=== PATIENT | male | born 1985 | race Caucasian/White ===

== ENCOUNTER 2021-12-13 09:50 | Inpatient (IN) | payer OTHER ==
[~2021-12-13] VITALS: Ht 172.7 cm; Wt 72.7 kg
[2021-12-13 12:02] LABS: COVID AG,FIA SOURCE NASOPHARYNGEAL
[2021-12-13 12:26] VITALS: BP 137/84
[2021-12-13] MEDS ORDERED: SODIUM CHLORIDE 0.9% 1,000 ML IV ONE (15:00)
[2021-12-13] MEDS ORDERED: LOPERAMIDE HCL 2 MG CAPSULE PO PRN (15:00)
[2021-12-13] MEDS ORDERED: METOCLOPRAMIDE HCL 5 MG/ML 2 ML VIAL IVP PRN (15:00)
[2021-12-13] MEDS ORDERED: DICYCLOMINE HCL 10 MG CAPSULE PO PRN (15:00)
[2021-12-13 15:05] LABS: BASOPHILS % (AUTO) 0.3 % (0.0-2.0); EOSINOPHILS % (AUTO) 0.9 % (1.0-6.0); HEMATOCRIT 38.6 % (41-53); HEMOGLOBIN 13.1 g/dL (13.5-17.5); LYMPHOCYTES # (AUTO) 1.4 K/uL (1.0-4.8); LYMPHOCYTES % (AUTO) 25.2 % (22.0-44.0); MEAN CORPUSCULAR HEMOGLOBIN 29.7 pg (26.0-34.0); MEAN CORPUSCULAR HGB CONC 33.9 G/dL (31.0-37.0); MEAN CORPUSCULAR VOLUME 88 fL (80-100); MONOCYTES # (AUTO) 0.4 K/uL (0.1-1.0); MONOCYTES % (AUTO) 6.8 % (2.0-9.0); NEUTROPHILS # (AUTO) 3.7 K/uL (1.8-7.7); NEUTROPHILS % (AUTO) 66.8 % (40.0-70.0); PLATELET COUNT (AUTO) 192 K/uL (150-450); RED BLOOD CELL COUNT(AUTO) 4.41 MIL/uL (4.50-5.90); RED CELL DISTRIBUTION WIDTH 13.6 % (11.5-14.5)
[2021-12-13 15:14] LABS: ANION GAP 4 mmol/L (8-16); CALCIUM, TOTAL 9.1 mg/dL (8.8-10.5); CARBON DIOXIDE 30 mmol/L (22-29); CHLORIDE 104 mmol/L (98-107); CREATININE 0.68 mg/dL (0.60-1.30); GLOMERULAR FILTR. RATE CALC > 60 mL/min (>60); GLUCOSE,RANDOM 117 mg/dL (70-110); POTASSIUM 3.8 mmol/L (3.5-5.1); SODIUM SERUM 138 mmol/L (136-145); UREA NITROGEN, BLOOD 13 mg/dL (7-18)
[2021-12-13 15:20] LABS: ALANINE AMINOTRANSFERASE 30 U/L (12-78); ALBUMIN 3.5 g/dL (3.4-5.0); ALKALINE PHOSPHATASE 61 U/L (46-116); ASPARTATE AMINOTRANSFERASE 15 U/L (15-37); BILIRUBIN,TOTAL 0.4 mg/dL (0.1-1.0); TOTAL PROTEIN, SERUM 6.7 g/dL (6.4-8.2)
[2021-12-13 16:18] VITALS: BP 112/64
[2021-12-13] MEDS: ACETAMINOPHEN/CODEINE 300-15 MG TABLET PO PRN (16:27)
[2021-12-13] MEDS: LORazepam 2 MG/ML VIAL IVP PRN (16:28)
[2021-12-13 20:13] VITALS: BP 101/58
[2021-12-13] MEDS ORDERED: TEMAZEPAM 15 MG CAPSULE PO SCH (21:00)
[2021-12-14] MEDS: LORazepam 2 MG/ML VIAL IVP PRN ×3 (00:29→16:41)
[2021-12-14] MEDS: ACETAMINOPHEN/CODEINE 300-15 MG TABLET PO PRN ×3 (00:29→16:41)
[2021-12-14 09:03] VITALS: BP 108/61
[2021-12-14] MEDS ORDERED: DENTURE ADHESIVE 68 GM CREAM DT PRN (11:30)
[2021-12-14] MEDS: BUPRENORPHINE HCL/NALOXONE HCL 8-2 MG SUBLINGUAL TABLET SL SCH (13:25)
[2021-12-14] MEDS: HydrOXYzine PAMOATE 25 MG CAPSULE PO SCH ×2 (13:25→20:31)
[2021-12-14 15:12] LABS: AMPHET/METH SCREEN,URINE NEGATIVE (NEGATIVE); BARBITURATE SCREEN, URINE NEGATIVE (NEGATIVE); BENZODIAZEPINES SCREEN,URINE NEGATIVE (NEGATIVE); CANNABINOID SCREEN,URINE NEGATIVE (NEGATIVE); COCAINE SCREEN,URINE NEGATIVE (NEGATIVE); METHADONE SCREEN, URINE NEGATIVE (NEGATIVE); OPIATE SCREEN,URINE POSITIVE (NEGATIVE)
[2021-12-14 15:26] LABS: PHENCYCLIDINE SCREEN,URINE NEGATIVE (NEGATIVE)
[2021-12-14 16:22] VITALS: BP 122/69
[2021-12-14 20:00] VITALS: BP 120/56
[2021-12-14] MEDS: TraZODone HCL 50 MG TABLET PO SCH (20:31)
[2021-12-14] MEDS ORDERED: TEMAZEPAM 15 MG CAPSULE PO ONE (21:15)
[2021-12-15 05:30] VITALS: BP 109/61
[2021-12-15] MEDS: LORazepam 2 MG/ML VIAL IVP PRN (06:17)
[2021-12-15] MEDS: ACETAMINOPHEN/CODEINE 300-15 MG TABLET PO PRN (06:18)
[2021-12-15] MEDS: MULTIVITAMINS WITH MINERALS, THERAPEUTIC TABLET PO SCH (08:35)
[2021-12-15] MEDS: HydrOXYzine PAMOATE 25 MG CAPSULE PO SCH ×2 (08:35→19:54)
[2021-12-15] MEDS: BUPRENORPHINE HCL/NALOXONE HCL 8-2 MG SUBLINGUAL TABLET SL SCH (08:35)
[2021-12-15 08:37] VITALS: BP 107/50
[2021-12-15 12:00] VITALS: BP 108/78
[2021-12-15] MEDS ORDERED: IBUPROFEN 600 MG TABLET PO PRN (13:15)
[2021-12-15] MEDS ORDERED: MAG HYDROX/AL HYDROX/SIMETH ES 30 ML SUSPENSION UDCUP PO PRN (13:15)
[2021-12-15] MEDS: DIAZEPAM 5 MG TABLET PO PRN ×2 (13:38→19:54)
[2021-12-15] MEDS ORDERED: DICYCLOMINE HCL 10 MG CAPSULE PO PRN (15:00)
[2021-12-15] MEDS ORDERED: METOCLOPRAMIDE HCL 5 MG/ML 2 ML VIAL IVP PRN (15:00)
[2021-12-15 16:06] VITALS: BP 124/61
[2021-12-15 16:31] VITALS: BP 124/61
[2021-12-15] MEDS: CloNIDine HCL 0.1 MG TABLET PO PRN (18:23)
[2021-12-15] MEDS: TraZODone HCL 50 MG TABLET PO SCH (19:54)
[2021-12-15 19:55] VITALS: BP 98/55
[2021-12-16] MEDS ORDERED: DIAZEPAM 5 MG TABLET PO PRN (07:00)
[2021-12-16 07:41] VITALS: BP 98/61
[2021-12-16] MEDS: MULTIVITAMINS WITH MINERALS, THERAPEUTIC TABLET PO SCH (08:33)
[2021-12-16] MEDS: BUPRENORPHINE HCL/NALOXONE HCL 2-0.5 MG SUBLINGUAL TABLET SL SCH (08:33)
[2021-12-16] MEDS: DIAZEPAM 5 MG TABLET PO SCH ×4 (08:33→20:22)
[2021-12-16] MEDS: HydrOXYzine PAMOATE 50 MG CAPSULE PO PRN ×2 (08:33→08:34)
[2021-12-16] MEDS: HydrOXYzine PAMOATE 25 MG CAPSULE PO SCH ×2 (09:15→20:22)
[2021-12-16 12:31] VITALS: BP 98/57
[2021-12-16 13:50] VITALS: BP 110/68
[2021-12-16] MEDS: CloNIDine HCL 0.1 MG TABLET PO PRN (15:31)
[2021-12-16 16:05] VITALS: BP 110/68
[2021-12-16] MEDS: TraZODone HCL 50 MG TABLET PO SCH (20:22)
[2021-12-16 20:25] VITALS: BP 110/68
[2021-12-16] MEDS: HYPROMELLOSE 0.5% 15 ML OPHTHALMIC SOLUTION OU PRN (21:22)
[2021-12-17] MEDS: MULTIVITAMINS WITH MINERALS, THERAPEUTIC TABLET PO SCH (08:22)
[2021-12-17 08:23] VITALS: BP 105/59
[2021-12-17] MEDS: DIAZEPAM 5 MG TABLET PO SCH ×4 (08:23→20:15)
[2021-12-17] MEDS: HydrOXYzine PAMOATE 25 MG CAPSULE PO SCH ×2 (08:23→20:14)
[2021-12-17] MEDS: BUPRENORPHINE HCL/NALOXONE HCL 2-0.5 MG SUBLINGUAL TABLET SL SCH (08:24)
[2021-12-17] MEDS: HYPROMELLOSE 0.5% 15 ML OPHTHALMIC SOLUTION OU PRN (08:40)
[2021-12-17] MEDS: SERTRALINE HCL 50 MG TABLET PO SCH ×2 (13:48→20:14)
[2021-12-17 16:09] VITALS: BP 95/54
[2021-12-17 20:05] VITALS: BP 113/66
[2021-12-17] MEDS: TraZODone HCL 50 MG TABLET PO SCH (20:15)
[2021-12-18 06:00] VITALS: BP 102/56
[2021-12-18] MEDS: DIAZEPAM 5 MG TABLET PO PRN ×3 (06:36→21:18)
[2021-12-18 07:29] VITALS: BP 110/58
[2021-12-18] MEDS: MULTIVITAMINS WITH MINERALS, THERAPEUTIC TABLET PO SCH (08:11)
[2021-12-18] MEDS: DIAZEPAM 5 MG TABLET PO SCH ×4 (08:27→20:28)
[2021-12-18] MEDS: HydrOXYzine PAMOATE 25 MG CAPSULE PO SCH ×2 (08:27→20:28)
[2021-12-18] MEDS: SERTRALINE HCL 50 MG TABLET PO SCH ×2 (08:28→20:27)
[2021-12-18] MEDS: BUPRENORPHINE HCL/NALOXONE HCL 2-0.5 MG SUBLINGUAL TABLET SL SCH (08:29)
[2021-12-18] MEDS: CloNIDine HCL 0.1 MG TABLET PO PRN ×2 (08:39→12:35)
[2021-12-18] MEDS ORDERED: DIAZEPAM 5 MG TABLET PO PRN (12:15)
[2021-12-18] MEDS ORDERED: SIMETHICONE 80 MG CHEWABLE TABLET CHEW PRN (12:45)
[2021-12-18] MEDS ORDERED: ONDANSETRON HCL 4 MG/2 ML VIAL IVP PRN (12:45)
[2021-12-18 15:20] VITALS: BP 98/56
[2021-12-18] MEDS: FAMOTIDINE 20 MG TABLET PO SCH ×2 (17:12→20:28)
[2021-12-18 19:37] VITALS: BP 93/53
[2021-12-18] MEDS: TraZODone HCL 50 MG TABLET PO SCH (20:29)
[2021-12-18] MEDS: ACETAMINOPHEN/CODEINE 300-15 MG TABLET PO PRN (20:34)
[2021-12-18] MEDS: HYPROMELLOSE 0.5% 15 ML OPHTHALMIC SOLUTION OU PRN (21:23)
[2021-12-19 05:17] VITALS: BP 102/52
[2021-12-19] MEDS: DIAZEPAM 5 MG TABLET PO PRN (06:26)
[2021-12-19] MEDS: ACETAMINOPHEN/CODEINE 300-15 MG TABLET PO PRN (06:28)
[2021-12-19] MEDS ORDERED: DIAZEPAM 5 MG TABLET PO PRN (07:00)
[2021-12-19] MEDS: SERTRALINE HCL 50 MG TABLET PO SCH ×2 (09:18→20:22)
[2021-12-19] MEDS: HydrOXYzine PAMOATE 25 MG CAPSULE PO SCH ×2 (09:18→20:22)
[2021-12-19] MEDS: BUPRENORPHINE HCL/NALOXONE HCL 2-0.5 MG SUBLINGUAL TABLET SL SCH (09:19)
[2021-12-19] MEDS: MULTIVITAMINS WITH MINERALS, THERAPEUTIC TABLET PO SCH (09:19)
[2021-12-19] MEDS: FAMOTIDINE 20 MG TABLET PO SCH ×2 (09:19→20:21)
[2021-12-19] MEDS ORDERED: BUPRENORPHINE HCL/NALOXONE HCL 2-0.5 MG SUBLINGUAL TABLET SL ONE (11:45)
[2021-12-19 15:33] VITALS: BP 119/76
[2021-12-19] MEDS: CloNIDine HCL 0.1 MG TABLET PO PRN (15:51)
[2021-12-19 16:28] VITALS: BP 105/67
[2021-12-19 19:40] VITALS: BP 108/67
[2021-12-19] MEDS: TraZODone HCL 50 MG TABLET PO SCH (20:21)
[2021-12-20 04:20] VITALS: BP 95/83
[2021-12-20 06:13] LABS: AMPHET/METH SCREEN,URINE NEGATIVE (NEGATIVE); BARBITURATE SCREEN, URINE NEGATIVE (NEGATIVE); BENZODIAZEPINES SCREEN,URINE POSITIVE (NEGATIVE); CANNABINOID SCREEN,URINE NEGATIVE (NEGATIVE); COCAINE SCREEN,URINE NEGATIVE (NEGATIVE); METHADONE SCREEN, URINE NEGATIVE (NEGATIVE); OPIATE SCREEN,URINE POSITIVE (NEGATIVE)
[2021-12-20 06:18] LABS: PHENCYCLIDINE SCREEN,URINE NEGATIVE (NEGATIVE)
[2021-12-20 08:10] VITALS: BP 97/58
[2021-12-20] MEDS: HydrOXYzine PAMOATE 25 MG CAPSULE PO SCH (08:14)
[2021-12-20] MEDS: MULTIVITAMINS WITH MINERALS, THERAPEUTIC TABLET PO SCH (08:15)
[2021-12-20] MEDS: FAMOTIDINE 20 MG TABLET PO SCH (08:15)
[2021-12-20] MEDS: SERTRALINE HCL 50 MG TABLET PO SCH ×2 (08:15→20:47)
[2021-12-20] MEDS ORDERED: BUPRENORPHINE HCL/NALOXONE HCL 8-2 MG SUBLINGUAL TABLET SL SCH (09:00)
[2021-12-20] MEDS ORDERED: HYPR15DR23 OU (11:21)
[2021-12-20] MEDS ORDERED: ACET-3560 PO (11:21)
[2021-12-20] MEDS ORDERED: LOPE2 PO (11:21)
[2021-12-20] MEDS ORDERED: SERT-158 PO (11:21)
[2021-12-20] MEDS ORDERED: IBUP-2070 PO (11:21)
[2021-12-20] MEDS ORDERED: MAG30ORA19 PO (11:25)
[2021-12-20] MEDS ORDERED: SIME80TA82 PO (11:25)
[2021-12-20] MEDS ORDERED: TRAZ-252 PO (15:44)
[2021-12-20] MEDS ORDERED: BUPR1FIL3 SL (15:44)
[2021-12-20] MEDS ORDERED: HYDR-4808 PO (15:44)
[2021-12-20 16:25] VITALS: BP 112/72
[2021-12-20] MEDS ORDERED: ZOLPIDEM TARTRATE 5 MG TABLET PO PRN (16:30)
[2021-12-20 19:24] VITALS: BP 109/50
[2021-12-20 20:00] VITALS: BP 116/57
[2021-12-20] MEDS ORDERED: TraZODone HCL 50 MG TABLET PO ONE (22:45)
[2021-12-21 05:57] VITALS: BP 99/55
[2021-12-21 07:50] VITALS: BP 110/76
[2021-12-21] MEDS: BUPRENORPHINE HCL/NALOXONE HCL 8-2 MG SUBLINGUAL TABLET SL SCH (08:03)
[2021-12-21] MEDS: SERTRALINE HCL 50 MG TABLET PO SCH ×2 (08:04→20:05)
[2021-12-21 09:29] LABS: AMPHET/METH SCREEN,URINE NEGATIVE (NEGATIVE); BARBITURATE SCREEN, URINE NEGATIVE (NEGATIVE); BENZODIAZEPINES SCREEN,URINE POSITIVE (NEGATIVE); CANNABINOID SCREEN,URINE NEGATIVE (NEGATIVE); COCAINE SCREEN,URINE NEGATIVE (NEGATIVE); METHADONE SCREEN, URINE NEGATIVE (NEGATIVE); OPIATE SCREEN,URINE NEGATIVE (NEGATIVE); PHENCYCLIDINE SCREEN,URINE NEGATIVE (NEGATIVE)
[2021-12-21 15:38] VITALS: BP 116/74
[2021-12-21] MEDS ORDERED: HydrOXYzine PAMOATE 50 MG CAPSULE PO ONE (16:00)
[2021-12-21] MEDS ORDERED: DiphenhydrAMINE HCL 50 MG/ML VIAL IM ONE (19:45)
[2021-12-21 20:05] VITALS: BP 119/70
[2021-12-21] MEDS: ZOLPIDEM TARTRATE 10 MG TABLET PO PRN (20:07)
[2021-12-22 08:13] VITALS: BP 92/57
[2021-12-22] MEDS: SERTRALINE HCL 50 MG TABLET PO SCH ×2 (08:22→20:57)
[2021-12-22] MEDS: BUPRENORPHINE HCL/NALOXONE HCL 8-2 MG SUBLINGUAL TABLET SL SCH (08:22)
[2021-12-22] MEDS ORDERED: TraZODone HCL 50 MG TABLET PO ONE (09:15)
[2021-12-22 10:45] LABS: AMPHET/METH SCREEN,URINE NEGATIVE (NEGATIVE); BARBITURATE SCREEN, URINE NEGATIVE (NEGATIVE); BENZODIAZEPINES SCREEN,URINE POSITIVE (NEGATIVE); CANNABINOID SCREEN,URINE NEGATIVE (NEGATIVE); COCAINE SCREEN,URINE NEGATIVE (NEGATIVE); METHADONE SCREEN, URINE NEGATIVE (NEGATIVE); OPIATE SCREEN,URINE NEGATIVE (NEGATIVE)
[2021-12-22 10:46] LABS: PHENCYCLIDINE SCREEN,URINE NEGATIVE (NEGATIVE)
[2021-12-22] MEDS: BuPROPion HCL 75 MG TABLET PO SCH (11:28)
[2021-12-22 16:19] VITALS: BP 95/47
[2021-12-22 16:23] VITALS: BP 102/58
[2021-12-22 20:53] VITALS: BP 99/57
[2021-12-22] MEDS: TraZODone HCL 50 MG TABLET PO SCH (20:58)
[2021-12-22] MEDS: ZOLPIDEM TARTRATE 10 MG TABLET PO PRN (21:40)
[2021-12-22] MEDS: HYPROMELLOSE 0.5% 15 ML OPHTHALMIC SOLUTION OU PRN (21:49)
[2021-12-23] MEDS: SERTRALINE HCL 50 MG TABLET PO SCH ×2 (08:07→20:04)
[2021-12-23] MEDS: BUPRENORPHINE HCL/NALOXONE HCL 8-2 MG SUBLINGUAL TABLET SL SCH (08:07)
[2021-12-23] MEDS: BuPROPion HCL 75 MG TABLET PO SCH (08:08)
[2021-12-23 08:23] VITALS: BP 101/56
[2021-12-23] MEDS: GABAPENTIN 300 MG CAPSULE PO SCH ×2 (10:57→20:03)
[2021-12-23 14:32] LABS: AMPHET/METH SCREEN,URINE NEGATIVE (NEGATIVE); BARBITURATE SCREEN, URINE NEGATIVE (NEGATIVE); BENZODIAZEPINES SCREEN,URINE POSITIVE (NEGATIVE); CANNABINOID SCREEN,URINE NEGATIVE (NEGATIVE); COCAINE SCREEN,URINE NEGATIVE (NEGATIVE); METHADONE SCREEN, URINE NEGATIVE (NEGATIVE); OPIATE SCREEN,URINE NEGATIVE (NEGATIVE)
[2021-12-23 14:35] LABS: PHENCYCLIDINE SCREEN,URINE NEGATIVE (NEGATIVE)
[2021-12-23 16:00] VITALS: BP 106/57
[2021-12-23] MEDS: TraZODone HCL 50 MG TABLET PO SCH (20:03)
[2021-12-23 20:05] VITALS: BP 101/61
[2021-12-23] MEDS: ZOLPIDEM TARTRATE 10 MG TABLET PO PRN (21:18)
[2021-12-24 07:34] VITALS: BP 116/71
[2021-12-24] MEDS: SERTRALINE HCL 50 MG TABLET PO SCH ×2 (08:59→19:58)
[2021-12-24] MEDS: GABAPENTIN 300 MG CAPSULE PO SCH ×2 (08:59→19:58)
[2021-12-24] MEDS: BUPRENORPHINE HCL/NALOXONE HCL 8-2 MG SUBLINGUAL TABLET SL SCH (09:00)
[2021-12-24] MEDS: BuPROPion HCL 75 MG TABLET PO SCH (09:00)
[2021-12-24 09:43] LABS: AMPHET/METH SCREEN,URINE NEGATIVE (NEGATIVE); BARBITURATE SCREEN, URINE NEGATIVE (NEGATIVE); BENZODIAZEPINES SCREEN,URINE POSITIVE (NEGATIVE); CANNABINOID SCREEN,URINE NEGATIVE (NEGATIVE); COCAINE SCREEN,URINE NEGATIVE (NEGATIVE); METHADONE SCREEN, URINE NEGATIVE (NEGATIVE); OPIATE SCREEN,URINE NEGATIVE (NEGATIVE)
[2021-12-24 09:45] LABS: PHENCYCLIDINE SCREEN,URINE NEGATIVE (NEGATIVE)
[2021-12-24 15:59] VITALS: BP 111/62
[2021-12-24] MEDS ORDERED: GABA-1181 PO (17:20)
[2021-12-24] MEDS ORDERED: BUPR-344 PO (17:44)
[2021-12-24] MEDS: TraZODone HCL 50 MG TABLET PO SCH (19:58)
[2021-12-24] MEDS: ZOLPIDEM TARTRATE 10 MG TABLET PO PRN (19:58)
[2021-12-24 20:00] VITALS: BP 115/63
[2021-12-25] MEDS: BUPRENORPHINE HCL/NALOXONE HCL 8-2 MG SUBLINGUAL TABLET SL SCH (06:12)
[2021-12-25] MEDS: SERTRALINE HCL 50 MG TABLET PO SCH (06:12)
[2021-12-25] MEDS: GABAPENTIN 300 MG CAPSULE PO SCH (06:13)
== END 2021-12-25 07:35 | DRG 897 ==
LOC: EMS 09:50 → 6S 11:48
PROVIDERS: ADMIT Hospitalist; ATTEND Hospitalist
DX: F11.23 Opioid dependence with withdrawal (principal); F13.20 Sedative, hypnotic or anxiolytic dependence, uncomplicated; D64.9 Anemia, unspecified; F17.210 Nicotine dependence, cigarettes, uncomplicated; Z20.822 Contact with and (suspected) exposure to COVID-19; F41.1 Generalized anxiety disorder; Z79.899 Other long term (current) drug therapy
CPT/HCPCS: 80053; 80307; 85025; 87081; 99285; G0480; J1200; J2060; J2765; J7030

== ENCOUNTER 2025-01-18 09:16 | Emergency (ER) | payer OTHER ==
[~2025-01-18] VITALS: Ht 167.6 cm; Wt 67.3 kg
[~2025-01-18 09:16] MED LIST: ACET-3560 PO; BUPR-344 PO; BUPR1FIL3 SL; GABA-1181 PO; HYPR15DR23 OU; IBUP-1492 PO; LOPE-232 PO; MAG30ORA19 PO; SERT-158 PO; SIME80TA82 PO; TRAZ-252 PO
[2025-01-18] MEDS ORDERED: VENL-68 PO (09:31)
[2025-01-18] MEDS ORDERED: GABA-1201 PO ×2 (09:31→10:17)
[2025-01-18 10:32] VITALS: BP 110/67; PULSE 71; RESP 16; TEMP 98.2; O2SAT 98
== END 2025-01-18 10:46 | disposition home or self-care (01) ==
LOC: EMS 09:21
DX: G62.9 Polyneuropathy, unspecified (principal); F41.9 Anxiety disorder, unspecified; F11.90 Opioid use, unspecified, uncomplicated; F19.10 Other psychoactive substance abuse, uncomplicated; F17.210 Nicotine dependence, cigarettes, uncomplicated; Z76.0 Encounter for issue of repeat prescription; Z79.899 Other long term (current) drug therapy
CPT/HCPCS: 99281; Z7502

== ENCOUNTER 2025-06-13 09:31 | Emergency (ER) | payer OTHER ==
[~2025-06-13] VITALS: Ht 172.7 cm; Wt 68.2 kg
[~2025-06-13 09:31] MED LIST changes: -ACET-3560 PO; -BUPR-344 PO; -BUPR1FIL3 SL; -GABA-1181 PO; +GABA-1201 PO; -HYPR15DR23 OU; -IBUP-1492 PO; -LOPE-232 PO; -MAG30ORA19 PO; -SERT-158 PO; -SIME80TA82 PO; -TRAZ-252 PO; +VENL-68 PO
[2025-06-13 09:37] VITALS: TEMP 97.7
[2025-06-13] MEDS ORDERED: GABA-1181 PO (12:09)
[2025-06-13 12:52] VITALS: BP 119/61; PULSE 78; RESP 18; O2SAT 100
== END 2025-06-13 12:52 | disposition home or self-care (01) ==
LOC: EMS 09:31
DX: F41.9 Anxiety disorder, unspecified (principal); G89.29 Other chronic pain; M54.50 Low back pain, unspecified; F32.A Depression, unspecified; F17.210 Nicotine dependence, cigarettes, uncomplicated; F14.90 Cocaine use, unspecified, uncomplicated; Z79.899 Other long term (current) drug therapy; Z76.0 Encounter for issue of repeat prescription
CPT/HCPCS: 99282; Z7502